=== PATIENT | female | born 2000 | race Caucasian/White ===

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

== ENCOUNTER 2020-02-15 15:48 | Emergency (ER) | payer OTHER ==
[~2020-02-15] VITALS: Ht 167.6 cm; Wt 63.5 kg
--- NOTE | 2020-02-15 16:05 | NUR ---
AT BEDSIDE FOR EVALUATION.
--- NOTE | 2020-02-15 16:05 | NUR ---
PT CAME TO ER FROM HOME C/O LOWER ABD PAIN R/T SIDES X2 DAYS, REPORTED HEMATURIA. PT ABLE TO AMBULATE. NOTED WITH FEVER. NO N/V. AWAITING FOR MD STARKS
--- NOTE | 2020-02-15 16:05 | NUR ---
urine collected and sent to lab
[2020-02-15] MEDS ORDERED: ACETAMINOPHEN 325 MG TABLET PO ONE (16:30)
[2020-02-15] MEDS ORDERED: IV NS 0.9% 1,000 ML IV ONE (16:30)
[2020-02-15] MEDS ORDERED: ACETAMINOPHEN 325 MG TABLET ONE (16:37)
[2020-02-15 16:46] LABS: BASOPHILS % (AUTO) 0.4 % (0.0-2.0); EOSINOPHILS % (AUTO) 0.4 % (0.0-6.0); HEMATOCRIT 40 % (33-45); HEMOGLOBIN 13.4 g/dL (11.5-14.8); LYMPHOCYTES # (AUTO) 2.9 /CMM (0.8-4.8); LYMPHOCYTES % (AUTO) 42.8 % (20.0-44.0); MEAN CORPUSCULAR HGB CONC 34 g/dl (31.0-36.0); MEAN CORPUSCULAR VOLUME 89 fL (82-100); MONOCYTES # (AUTO) 0.7 /CMM (0.1-1.30); MONOCYTES % (AUTO) 9.6 % (2.0-12.0); NEUTROPHILS # (AUTO) 3.2 /CMM (1.8-8.9); NEUTROPHILS % (AUTO) 46.8 % (43.0-81.0); PLATELET COUNT (AUTO) 237 /CMM (150-450); RED BLOOD CELL COUNT(AUTO) 4.45 MIL/uL (4.0-5.2); WHITE BLOOD COUNT (AUTO) 6.8 K/uL (4.3-11.0)
[2020-02-15 16:52] LABS: APPEARANCE,URINE CLEAR (CLEAR); BILIRUBIN,URINE NEGATIVE (NEGATIVE); BLOOD, URINE NEGATIVE Ery/uL (NEGATIVE); COLOR,URINE YELLOW (YELLOW); KETONES,URINE NEGATIVE (NEGATIVE); LEUKOCYTE ESTERASE ,URINE NEGATIVE (NEGATIVE); NITRITE, URINE NEGATIVE (NEGATIVE); PROTEIN,URINE NEGATIVE (NEGATIVE); UGLUCOSE NEGATIVE (NEGATIVE); UROBILINOGEN,URINE 0.2 EU/dL (0.2)
[2020-02-15 16:58] LABS: CREATININE 0.9 mg/dL (0.6-1.3); POTASSIUM 3.5 mmol/L (3.5-5.1)
[2020-02-15 17:05] LABS: ALBUMIN 3.8 g/dL (3.4-5.0); BILIRUBIN,DIRECT 0.1 mg/dL (0.0-0.2); BILIRUBIN,TOTAL 0.4 mg/dL (0.2-1.0); TOTAL PROTEIN, SERUM 7.4 g/dL (6.4-8.2)
--- NOTE | 2020-02-15 18:33 | NUR ---
Patient a/ox4, breathing even and unlabored, no sob noted, needs attended. kept comfortable. IV removed. Catheter intact and site benign. Pressure and 4x4 applied to site. No bleeding noted.Patient discharged to home in stable condition. Written and verbal after care instructions given. Patient verbalizes understanding of instruction.
[2020-02-15 18:34] VITALS: BP 112/76
== END 2020-02-15 18:44 | disposition home or self-care (01) ==
LOC: ER 15:54
DX: K92.1 Melena (principal); R50.9 Fever, unspecified; K64.4 Residual hemorrhoidal skin tags; Z98.890 Other specified postprocedural states
CPT/HCPCS: 36415; 76856; 80048; 80076; 81001; 83690; 84702; 85025; 96360; 99284; J7030; 81000-TC

== ENCOUNTER 2020-06-14 11:18 | Emergency (ER) | payer OTHER ==
[~2020-06-14] VITALS: Ht 160 cm; Wt 59.9 kg
[2020-06-14 11:31] VITALS: BP 126/79
--- NOTE | 2020-06-14 11:32 | NUR ---
SEEN AND EXAMINED BY .
--- NOTE | 2020-06-14 12:30 | NUR ---
Patient discharged to home in stable condition. Written and verbal after care instructions given. Patient verbalizes understanding of instruction. Pt ambulatory with a steady gait
== END 2020-06-14 12:31 | disposition home or self-care (01) ==
LOC: ER 11:24
DX: S50.12XA Contusion of left forearm, initial encounter (principal); W20.8XXA Other cause of strike by thrown, projected or falling object, initial encounter; Y93.89 Activity, other specified; Y92.89 Other specified places as the place of occurrence of the external cause; Y99.8 Other external cause status
CPT/HCPCS: 73090-TC

== ENCOUNTER 2022-03-10 19:17 | Emergency (ER) | payer OTHER ==
[~2022-03-10] VITALS: Ht 167.6 cm; Wt 65.8 kg
--- NOTE | 2022-03-10 19:39 | NUR ---
TO ER BED 16. BIBS C/O BLOODY/PAINFUL URINATION X1500 . TOOK MOTRIN WITH NO RELIEF. PT IS ALERT AND AMBULATORY. RR EVEN AND NON LABORED. CONNECTED TO MONITOR
--- NOTE | 2022-03-10 19:40 | NUR ---
URINE COLLECTED AND SENT TO LAB
[2022-03-10 20:23] LABS: BILIRUBIN,URINE NEGATIVE (NEGATIVE); COLOR,URINE AMBER (YELLOW); LEUKOCYTE ESTERASE ,URINE NEGATIVE (NEGATIVE); NITRITE, URINE NEGATIVE (NEGATIVE); PH,URINE 6.5 (5.0-8.0); PROTEIN,URINE 2+ mg/dl (NEGATIVE); UGLUCOSE NEGATIVE (NEGATIVE); UROBILINOGEN,URINE 0.2 EU/dL (0.2)
[2022-03-10 20:32] LABS: RBC,URINE TOO NUMEROUS TO COUN /HPF (0-2)
[2022-03-10 20:33] LABS: BACTERIA,URINE Moderate /HPF (None Seen); SQUAMOUS EPITHELIAL CELL,UR Few /HPF (None Seen); WBC,URINE 21-50 /HPF (0-3)
[2022-03-10] MEDS ORDERED: PHENAZOPYRIDINE HCL 200 MG TABLET ONE (20:40)
[2022-03-10] MEDS ORDERED: NITROFURANTOIN/MONOHYDRATE MACROCRYSTALS 100 MG CAPSULE ONE (20:40)
[2022-03-10] MEDS ORDERED: PHEN-704 PO (20:41)
[2022-03-10] MEDS ORDERED: NITR100C6 PO (20:41)
[2022-03-10 20:47] VITALS: BP 120/86
--- NOTE | 2022-03-10 20:47 | NUR ---
Patient discharged to home in stable condition. Written and verbal after care instructions given. Patient verbalizes understanding of instruction.
[2022-03-10] MEDS ORDERED: PHENAZOPYRIDINE HCL 200 MG TABLET PO ONE (21:00)
[2022-03-10] MEDS ORDERED: NITROFURANTOIN/MONOHYDRATE MACROCRYSTALS 100 MG CAPSULE PO ONE (21:00)
== END 2022-03-10 20:48 | disposition home or self-care (01) ==
LOC: ER 19:20
DX: N39.0 Urinary tract infection, site not specified (principal)
CPT/HCPCS: 81001